=== PATIENT | female | born 1985 | race American Indian/Alaskan Native ===

== ENCOUNTER 2016-10-28 12:54 | Outpatient (CLI) | payer MEDICAID ==
--- NOTE | 2016-10-28 14:56 | Cat Scan Report ---
CT of the abdomen and pelvis with IV contrast. The study was ordered with oral contrast also, but the patient refused. History: Abdominal mass. Findings: The liver and spleen are normal. There is a crescent-shaped fluid collection adjacent to the right liver margin with a maximum thickness of 2.1 cm. The pancreas and gallbladder appear normal. There is severe bilateral renal atrophy. There is a huge cystic mass arising from the pelvis extending well into the upper abdomen with a maximum transverse dimension of 22 cm with a maximum AP dimension of 10 cm. There appears to be an isolated mural nodule with eccentric calcification in the right posterior aspect of this mass. The uterus is atrophic and partially calcified. The urinary bladder is severely compressed. There is no free air. Impression: Huge cystic or lytic mass with an isolated small mural nodule arising from the pelvis extending well into the upper abdomen with above described dimensions. A neoplastic process, possibly from the ovaries is suspected. 2. Hepatic subcapsular fluid collection which could represent serous fluid, hemorrhage, or less likely abscess. Clinical correlation is advised. 3. Severe renal atrophy.
== END 2016-10-28 12:55 | disposition home or self-care (01) ==
LOC: CT 12:54
PROVIDERS: ATTEND Obstetrics & Gynecology
DX: N26.1 Atrophy of kidney (terminal) (principal); N85.8 Other specified noninflammatory disorders of uterus
CPT/HCPCS: 74177; Q9967

== ENCOUNTER 2016-11-25 10:51 | Day surgery (SDC) | payer MEDICAID ==
[~2016-11-25 10:51] MED LIST: NACL 0.9% IR ONE
[2016-11-25] MEDS ORDERED: DIPRIVAN 10 MG/ML IV ONE (11:34)
[2016-11-25] MEDS ORDERED: SUBLIMAZE ONE (11:34)
[2016-11-25] MEDS ORDERED: PEPCID PO NR (12:12)
[2016-11-25] MEDS ORDERED: NACL 0.9% 1000 ML 1,000 ML IV SCH (12:12)
[2016-11-25] MEDS ORDERED: VERSED IV NR (12:12)
[2016-11-25] MEDS ORDERED: DILAUDID IV PRN (12:13)
[2016-11-25] MEDS ORDERED: ZOFRAN IV PRN (12:13)
--- NOTE | 2016-11-25 12:20 | Anesthesia Consultation ---
Anesthesia Consult and Med Hx Date of service: 11/25/16 - Airway Anesthetic Teeth Evaluation: Good ROM Head & Neck: Adequate Mental/Hyoid Distance: Adequate Mallampati Class: Class II Intubation Access Assessment: Probably Good - Pulmonary Exam CTA: Yes - Cardiac Exam Cardiac Exam: RRR - Pre-Operative Health Status ASA Pre-Surgery Classification: ASA3 Proposed Anesthetic Plan: General - Pulmonary Hx Asthma: Yes - Cardiovascular System Hx Hypertension: Yes - Central Nervous System Hx Neuromuscular Disorder: Yes (DOWNS SYNDROME) Hx Seizures: Yes (One time 04/01/16 related to electrolyte imbalance) Hx Psychiatric Problems: Yes - Endocrine Hx End Stage Renal Disease: Yes - Hematic Hx Anemia: Yes - Other Systems Hx Cancer: No
--- NOTE | 2016-11-25 12:22 | Anesthesia Day of Surgery ---
Anesthesia Day of Surgery - Day of Surgery Patient Examined: Yes Patient H&P Reviewed: Yes Patient is NPO: Yes Beta Blockers: Yes
[2016-11-25 12:50] LABS: Hemoglobin 9.2 gm/dl (10.1-14.3); Mean Corpuscular HGB Conc 31 % (30-34); Mean Corpuscular Hemoglobin 28 pg (28-32); Mean Corpuscular Volume 91 fl (79-97); Platelet Count 133 K/mm3 (140-440); Red Blood Count 3.29 M/mm3 (3.65-5.03); Red Cell Distribution Width 17.5 % (13.2-15.2); White Blood Count 4.8 K/mm3 (4.5-11.0)
[2016-11-25 12:56] LABS: BUN/Creatinine Ratio 5.5; Chloride 100.5 mmol/L (98-107); Potassium 3.9 mmol/L (3.6-5.0)
[2016-11-25] MEDS ORDERED: NEO SYNEPHRINE/NS Syringe(OR USE) IV ONE (13:00)
[2016-11-25] MEDS ORDERED: SILVER NITRATE TP ONE (13:09)
--- NOTE | 2016-11-25 13:11 | Short Stay Summary ---
Short Stay Documentation Date of service: 11/25/16 Narrative H&P: 31y/o G0 with severely abnormal bleeding. She has been unresponsive to medical management. The patient has had to received transfusion of blood products secondary to anemia. - History Principal diagnosis: dysfunctional uterine bleeding; anemia Past Medical History: hypertension, renal failure, other (Trisomy 21; asthma; heart murmur) Past Surgical History: Other (PDA repair; shunt) Social history: single - Allergies and Medications Current Medications: Allergies codeine Adverse Reaction (Verified 11/24/16 07:03) PSYCHOTIC BEHAVIOR ketamine [Ketamine] Adverse Reaction (Unverified 11/24/16 07:03) PSYCHOTIC BEHAVIOR HALLUCINATIONS; CONFUSION morphine Adverse Reaction (Unverified 11/24/16 07:03) PSYCHOTIC BEHAVIOR HALLUCINATIONS Home Medications Medication Instructions Recorded Confirmed Last Taken Type ALBUTEROL NEB's [Proventil] 2 puff IH TID PRN 10/27/16 11/25/16 1 Week Ago History Calcium Acetate [Phoslyra] 1,000 unit PO QAC 10/27/16 11/25/16 11/24/16 18:00 History Metoprolol [Lopressor] 100 mg PO BID 10/27/16 11/25/16 11/24/16 09:30 History Pantoprazole [Protonix] 40 mg PO QDAY 10/27/16 11/25/16 11/23/16 12:00 History amLODIPine [Norvasc] 10 mg PO DAILY 10/27/16 11/25/16 11/24/16 15:00 History medroxyPROGESTERone ACETATE 150 mg IM [id number] 10/27/16 11/25/16 1 Month Ago History [Depo-Provera (Contraception)] Megestrol Acetate [Megace] 400 mg PO DAILY 11/25/16 11/25/16 11/23/16 15:00 History Active Medications Famotidine (Pepcid) 20 mg PO PREOP NR Stop: 11/25/16 23:00 Last Admin: 11/25/16 12:49 Dose: 20 mg Hydromorphone HCl (Dilaudid) 0.5 mg IV Q10MIN PRN PRN Reason: Pain , Severe (7-10) Stop: 11/28/16 12:14 Sodium Chloride (Nacl 0.9% 1000 Ml) 1,000 mls @ 75 mls/hr IV DIRECT MIGUEL Last Admin: 11/25/16 12:50 Dose: 75 mls/hr Midazolam HCl (Versed) 2 mg IV PREOP NR Stop: 11/25/16 23:59 Last Admin: 11/25/16 12:51 Dose: 2 mg - Physical exam General appearance: no acute distress Integumentary: no rash HEENT: Atraumatic Lungs: Clear to auscultation Breasts: deferred Heart: Regular rate Gastrointestinal: normal Female Genitourinary: deferred Rectal Exam: deferred - Brief post op/procedure progress note Date of procedure: 11/25/16 Pre-op diagnosis: dysfunctional uterine bleeding Post-op diagnosis: same Procedure: hysteroscopy dilation and curettage Failed Novasure procedure Anesthesia: GETA Surgeon: KYLE HOPPER Estimated blood loss: 50-100ml Pathology: list (endometrial curettings) Specimen disposition: to lab Condition: stable - Hospital course Hospital course: Patient was admitted the day of surgery and underwent a hysteroscopy dilatation and curettage. Her intraoperative course is complicated by inability to pass the cavity evaluation with the NovaSure. The endometrial ablation could not be performed. Please see operative note for details of surgery. Postoperative course was uneventful. - Disposition Condition at discharge: Good Disposition: DC-01 TO HOME OR SELFCARE Short Stay Discharge Plan Activity: no restrictions Diet: regular Additional Instructions: Follow-up with Dr. Hopkins in 2 weeks
[2016-11-25 14:06] LABS: Basophils % (Manual) 0 % (0.0-1.8); Blastocytes % (Manual) 0 %; Eosinophils % (Manual) 0 % (0.0-4.3)
[2016-11-25 14:07] LABS: Diff Status Complete; RBC Morphology Normal
[2016-11-25] MEDS ORDERED: XYLOCAINE MPF 2% ONE (14:15)
[2016-11-25] MEDS ORDERED: ZOFRAN ONE (14:20)
[2016-11-25] MEDS ORDERED: NACL 0.9% IR ONE ×2 (14:20→14:57)
--- NOTE | 2016-11-25 15:18 | Operative Report ---
Operative Report Operative Report: Date of procedure: 11/25/2016 Pre-operative diagnosis: Functional uterine bleeding; iron deficiency anemia Post-operative diagnosis: Same as above Procedure name(s): Hysteroscopy; dilatation and curettage; Failed endometrial ablation via NovaSure Surgeon: Zahida Unger M.D. Environment Coordinator: None Anesthesia: Gen. endotracheal anesthesia Pathology: Endometrial curettings Findings nulliparous appearing cervix and uterus. Normal uterine cavity without evidence of any cavitary lesions. Indication: 31-year-old G0 who presents with a history of severely dysfunctional uterine bleeding that has been unresponsive to medical management. The patient's menorrhagia has been so significant that she has required transfusion of blood products. Procedure The patient was taken to the operating room and given general tracheal anesthesia without complication. The patient was prepped and draped in a normal sterile fashion. A pediatric speculum was used secondary to the patient and never being sexually active. A single-tooth tenaculums placed on the anterior lip of the cervix. The cervix was very small and nulliparous. The cervical os was dilated with graduated dilators. A uterine sound was inserted. The hysteroscope was then placed. Insufflation of the uterine cavity was performed with normal saline. Gen. survey of the uterine cavity revealed small endometrial cavity. There was no evidence of any intracavitary lesions.. The hysteroscope was then removed. A sharp curettage of the endometrial surface was performed. The NovaSure device was then inserted. The endometrial length was 4.0 cm and the uterine width was 2.7 cm. The device was deployed but was unable to pass the surveillance of the uterine cavity. After making 2 attempts to pass with the NovaSure device the original device was removed and a new NovaSure device was used. Unfortunately the cavity assessment cannot be passed with the second device. The NovaSure device was then removed. The hysteroscope was again reinserted. A uterine perforation could not be identified visually The remainder of the vaginal instruments were then removed atraumatically. The patient was then successfully extubated taken to the recovery room. All sponge laps and needle counts were correct 2.
--- NOTE | 2016-11-25 17:41 | Post Anesthesia Evaluation ---
- Post Anesthesia Evaluation Patient Participated: Yes Airway Patent: Yes Stable Respiratory Function: Yes Nausea/Vomiting: No Temp > 96.8F: Yes Pain Manageable: Yes Adequeate Hydration: Yes Anesthesia Complications: No Block Receding Appropriately: Not Applicable Patient on Ventilator: No
[2016-11-25 19:02] VITALS: BP 172/90
== END 2016-11-25 16:20 | disposition home or self-care (01) ==
LOC: OR 10:51
PROVIDERS: ATTEND Obstetrics & Gynecology
DX: N93.8 Other specified abnormal uterine and vaginal bleeding (principal); I12.9 Hypertensive chronic kidney disease with stage 1 through stage 4 chronic kidney disease, or unspecified chronic kidney disease; N18.9 Chronic kidney disease, unspecified
CPT/HCPCS: 36415; 58563; 80048; 84703; 85007; 85025; 88305; A4217; J2250; J2370; J2405; J2704; J3010; J7030